=== PATIENT | female | born 1945 | race Caucasian/White ===

== ENCOUNTER → 2017-05-27 | Outpatient (CLI) | payer MEDICARE, OTHER ==
[~2017-05-27] MED LIST: B12 INJ.,1000 MCG/M; DILTIAZEM CD240 M1 PO; HYDROCODONE-APA1 TA1 PO; KEFLEX500 M1 PO; OMEPRAZOLE20 M1 PO; PRAVASTATIN 20M20 MG PO; PREVACID SOLUTA30 M1 PO; TRAMADOL 50MG T50 M1 PO; VENLAFAXINE75 M1 PO; VITAMIN D31000 IU PO
[2017-05-27 12:04] LABS: LYMPH # 2.6 K/mm3 (0.7-4.5); LYMPH % 32.5 % (10-50.0)
[2017-05-27 12:26] LABS: BUN 16 mg/dL (7-18); GFR (ESTIMATED) 62 ML/MIN (59-)
--- NOTE | 2017-05-27 19:47 | RADIOLOGY REPORT PS360 ---
CTA-CHEST HISTORY: DYSPNEA,ABNORMAL EKG,CHEST PAIN ON BREATHING,ELEVATED D DI ORDERING PHYSICIAN: Lisa Almaguer APRN PATIENT AGE: 71 years TECHNIQUE: Helical acquisition obtained following the bolus administration of 60 mL of Isovue 370 followed by a saline bolus. Axial, sagittal, and coronal reformatted images are generated and reviewed. COMPARISON: None FINDINGS: No evidence of pulmonary embolus. There is tortuosity of the thoracic aorta without aneurysm. Normal heart size. No pericardial effusion. Coronary artery calcifications are present. No mediastinal mass or adenopathy. No hilar adenopathy. The right hemidiaphragm is elevated with atelectatic changes in the right lower lobe. No pleural effusion. There are old right-sided rib fractures. The upper abdomen shows no acute finding. There is a small hiatal hernia. There are fractures involving the left sixth through 12th ribs posteriorly these do appear more acute than those on the right. Please correlate with clinical findings as to patient's time of injury. Fracture lines are still visible. There however does appear to be some minimal callus formation at fracture sites. No evidence of pneumothorax. Adjacent spleen is incompletely imaged. Minimal pleural thickening in the left posterior costophrenic sulcus. IMPRESSION: 1. No evidence of pulmonary embolus or aortic aneurysm. 2. Elevated right hemidiaphragm with right lower lobe atelectasis. 3. Old bilateral right rib fractures and subacute/healing left rib fractures.
== END ==
LOC: LAB 11:36 → RAD 11:36
PROVIDERS: Nurse Practitioner Family
DX: R06.09 Other forms of dyspnea (principal); R94.31 Abnormal electrocardiogram [ECG] [EKG]; R07.1 Chest pain on breathing; R79.89 Other specified abnormal findings of blood chemistry
CPT/HCPCS: Q9967